=== PATIENT | female | born 2000 | race Caucasian/White ===

== ENCOUNTER 2020-02-07 12:52 | Emergency (ER) | payer BC ==
[2020-02-07 13:20] LABS: Bilirubin Small (Negative); Blood, Urine Large (Negative); Glucose, Urine (Dipstick) Negative (Negative); Leukocyte Moderate (Negative); Nitrite Negative (Negative); Protein, Urine (Dipstick) 100 mg/dL (Neg-Trace); Urobilinogen 0.2 mg/dL (Less than 2)
[2020-02-07 13:21] LABS: Clarity Cloudy (Clear)
[2020-02-07 13:22] LABS: Pregnancy Test - Urine (BHCG) Negative (Negative); Pregu Control Background? CLEAR/WHITE (CLR/WHITE); Pregu Control Bar Appear? YES (CONTROL BAR); Specific Gravity 1.025 (1.002-1.036)
[2020-02-07 13:29] LABS: Bacteria/HPF 3+ HPF (None Seen); RBC/HPF Greater than 50 HPF (0-3); WBC/HPF Greater Than 50 HPF (0-3)
[2020-02-09 21:44] LABS: Chlam.trachomatis by PCR,Urine Inconclusive (NotDetected)
== END 2020-02-07 14:15 | disposition home or self-care (01) ==
LOC: ERS 12:52
DX: N39.0 Urinary tract infection, site not specified (principal); F41.9 Anxiety disorder, unspecified; F32.9 Major depressive disorder, single episode, unspecified
CPT/HCPCS: 81003; 81015; 81025; 87491; 87591; 99283

== ENCOUNTER 2021-02-12 07:27 | Emergency (ER) | payer BC ==
[2021-02-12 08:43] LABS: #Lymphocytes 1.4 thou/uL (1.20-3.40); #Monocytes 1.1 thou/uL (0.11-0.59); #Neutrophils 9.9 thou/uL (1.40-6.50); %Basophils 0.1 % (0.0-1.0); %Eosinophils 0.2 % (0.0-10.0); %Monocytes 8.6 % (0.0-10.0); %Neutrophils 80.2 % (42.0-75.0); Hemoglobin 13.5 g/dL (12.0-16.0); Mean Corpuscular HGB CONC 33.1 g/dL (32.0-36.0); Mean Corpuscular Hemoglobin 31.6 pg (27.0-31.0); Mean Corpuscular Volume 95.7 fL (78.0-98.0); Mean Platelet Volume 8.2 fL (7.4-10.4); Platelet Count 218 thou/uL (130-400); RBC Distribution Width 11.8 % (11.5-14.5); Red Blood Cell (RBC) Count 4.26 mill/uL (4.20-5.40); White Blood Cell (WBC) Count 12.3 thou/uL (4.8-10.8)
[2021-02-12 09:02] LABS: ALT (SGPT) 10 U/L (8-55); AST (SGOT) 14 U/L (5-34); Albumin 4.6 g/dL (3.5-5.0); Alkaline Phosphatase 75 U/L (40-110); Anion Gap 14 mmol/L (10-20); BUN (Urea Nitrogen) 8 mg/dL (7.0-18.7); Bilirubin, Total 0.7 mg/dL (0.2-1.2); Calc. Creatinine Clearance 0 mL/min (70-130); Calcium 9.4 mg/dL (7.8-10.44); Carbon Dioxide 23 mmol/L (22-29); Chloride 103 mmol/L (98-107); Globulin 2.8 g/dL (2.4-3.5); Glucose 106 mg/dL (70-105); Potassium 4.3 mmol/L (3.5-5.1); Protein, Total 7.4 g/dL (6.0-8.3); Sodium 136 mmol/L (136-145)
[2021-02-12 09:42] LABS: Bacteria/HPF None Seen HPF (None Seen); Bilirubin Negative (Negative); Blood, Urine 2+ (Negative); Clarity Clear (Clear); Glucose, Urine (Dipstick) Normal (Negative); Ketone, Urine 10 mg/dL (Negative); Leukocyte Negative Leu/uL (Negative); Nitrite Negative (Negative); Pregnancy Test - Urine (BHCG) Negative (Negative); Pregu Control Background? CLEAR/WHITE (CLR/WHITE); Pregu Control Bar Appear? YES (CONTROL BAR); Protein, Urine (Dipstick) 10 mg/dL (Neg-Trace); Specific Gravity 1.026 (1.002-1.036); Specific Gravity, Urine 1.026 (1.002-1.036); Squamous Epithelial 0-3 HPF (0-3); Urobilinogen Normal mg/dL (Less than 2); WBC/HPF 0-3 HPF (0-3); pH, Urine 5.5 (5.0-9.0)
[2021-02-12] MEDS ORDERED: Bicillin LA 2.4 MILL.UNITS/4 ML SYRINGE ONE (09:57)
== END 2021-02-12 10:15 | disposition home or self-care (01) ==
LOC: ERS 07:27
DX: J02.0 Streptococcal pharyngitis (principal)
CPT/HCPCS: 36415; 80053; 81003; 81015; 81025; 85025; 87081; 87430; 96372; 99283; J0561

== ENCOUNTER 2025-05-14 03:46 | Emergency (ER) | payer BC ==
[2025-05-14 04:30] LABS: #Basophils 0.03 10x3/uL (0.0-0.2); #Eosinophils Less than 0.03 10x3/uL (0.0-0.7); #Monocytes 0.93 10x3/uL (0.11-0.59); #Neutrophils 10.46 10x3/uL (1.40-6.50); %Basophils 0.2 % (0.0-1.0); %Eosinophils 0.2 % (0.0-10.0); %Lymphocytes 10.1 % (21.0-51.0); %Monocytes 7.3 % (0.0-10.0); %Neutrophils 82.0 % (42.0-75.0); Hematocrit 38.7 % (36.0-47.0); Hemoglobin 13.0 g/dL (12.0-16.0); Mean Corpuscular Hemoglobin 30.2 pg (27.0-31.0); Mean Corpuscular Volume 89.8 fL (78.0-98.0); Platelet Count 208 10x3/uL (130-400); Red Blood Cell (RBC) Count 4.31 mill/uL (4.20-5.40); White Blood Cell (WBC) Count 12.76 10x3/uL (4.8-10.8)
[2025-05-14 04:47] LABS: ALT (SGPT) 8 U/L (Less than 34); AST (SGOT) 14 U/L (11-34); Albumin 4.3 g/dL (3.1-4.5); Alkaline Phosphatase 60 U/L (40-110); Anion Gap 14 mmol/L (10-20); BUN (Urea Nitrogen) 5 mg/dL (7.0-18.7); Bilirubin, Total 0.4 mg/dL (0.3-1.2); Calc. Creatinine Clearance 0 mL/min (70-130); Calcium 9.1 mg/dL (7.8-10.44); Carbon Dioxide 22 mmol/L (22-29); Chloride 107 mmol/L (98-107); Globulin 3.0 g/dL (2.4-3.5); Glucose 115 mg/dL (70-105); Potassium 3.6 mmol/L (3.5-5.1); Sodium 139 mmol/L (136-145)
[2025-05-14] MEDS ORDERED: Acetaminophen 500 MG TAB ONE (05:24)
== END 2025-05-14 07:33 | disposition home or self-care (01) ==
LOC: ERS 03:46
DX: O99.891 Other specified diseases and conditions complicating pregnancy (principal); R10.2 Pelvic and perineal pain; Z3A.01 Less than 8 weeks gestation of pregnancy
CPT/HCPCS: 36415; 76856; 80053; 84702; 85025; 86850; 86900; 86901; 87081; 87426; 87430

== ENCOUNTER 2025-05-14 17:09 | Emergency (ER) | payer BC ==
[2025-05-14 18:41] LABS: #Basophils 0.04 10x3/uL (0.0-0.2); #Eosinophils Less than 0.03 10x3/uL (0.0-0.7); #Monocytes 1.03 10x3/uL (0.11-0.59); #Neutrophils 13.66 10x3/uL (1.40-6.50); %Basophils 0.3 % (0.0-1.0); %Eosinophils 0.1 % (0.0-10.0); %Lymphocytes 5.4 % (21.0-51.0); %Monocytes 6.6 % (0.0-10.0); %Neutrophils 87.3 % (42.0-75.0); Hematocrit 39.5 % (36.0-47.0); Hemoglobin 12.7 g/dL (12.0-16.0); Mean Corpuscular Hemoglobin 29.4 pg (27.0-31.0); Mean Corpuscular Volume 91.4 fL (78.0-98.0); Platelet Count 217 10x3/uL (130-400); Red Blood Cell (RBC) Count 4.32 mill/uL (4.20-5.40); White Blood Cell (WBC) Count 15.62 10x3/uL (4.8-10.8)
[2025-05-14 18:58] LABS: BHCG - Serum POSITIVE (NEGATIVE); Pregs Control Background? CLEAR/WHITE (CLR/WHITE); Pregs Control Bar Appear? YES (CONTROL BAR)
[2025-05-14] MEDS ORDERED: Acetaminophen 500 MG TAB ONE (21:17)
== END 2025-05-14 21:23 | disposition home or self-care (01) ==
LOC: ERS 17:09
DX: O03.4 Incomplete spontaneous abortion without complication (principal); O99.511 Diseases of the respiratory system complicating pregnancy, first trimester; J03.90 Acute tonsillitis, unspecified; Z3A.01 Less than 8 weeks gestation of pregnancy; O99.891 Other specified diseases and conditions complicating pregnancy; R10.2 Pelvic and perineal pain
CPT/HCPCS: 36415; 76856; 80053; 84702; 84703; 85025; 86850; 86900; 86901; 87081; 87426; 87430; 99284